=== PATIENT | male | born 1950 | race Caucasian/White ===

== ENCOUNTER 2021-07-02 11:00 | Outpatient (CLI) | payer MEDICARE, SELFPAY ==
[2021-07-02 11:22] LABS: Basophils Absolute Auto 0.1 K/mm3 (0.0-0.1); Basophils Percent Auto 0.9 % (0.2-1.2); Eosinophils Absolute Auto 0.3 K/mm3 (0-0.3); Eosinophils Percent Auto 4.4 % (0-4.4); Hematocrit 46.2 % (42.0-52.0); Hemoglobin 15.7 g/dL (14.0-18.0); Immature Granulocyte Absolute 0.02 K/mm3 (0.00-0.031); Immature Granulocyte Percent A 0.3 % (0-0.5); Lymphocytes Absolute Auto 1.28 K/mm3 (0.9-3.2); Lymphocytes Percent Auto 20.3 % (18.3-44.2); Mean Corpuscular Hemoglobin 34.3 pg (26-34); Mean Corpuscular Volume 100.9 fl (80-100); Mean Platelet Volume 10.7 fl (7.4-10.4); Monocytes Absolute Auto 0.6 K/mm3 (0.1-0.6); Neutrophils Absolute Auto 4.1 K/mm3 (1.3-6.7); Neutrophils Percent Auto 65.1 % (45.5-73.1); Platelet Count Result 234 k/mm3 (150-375); Red Blood Count 4.58 M/mm3 (4.6-6.20); Red Cell Distribution Width 11.9 % (11.5-14.5); White Blood Count 6.3 K/mm3 (4.5-10.0)
[2021-07-02 12:06] LABS: Alanine Aminotransferase 34 U/L (4-50); Albumin Level 4.4 g/dL (3.5-5.1); Alkaline Phosphatase 51 U/L (38-126); Anion Gap 6 mmol/L (8-16); Aspartate Amino Transferase 27 U/L (17-59); Blood Urea Nitrogen 16 mg/dL (9-20); Calcium 9.4 mg/dL (8.4-10.2); Carbon Dioxide 31 mmol/L (22-30); Chloride 100 mmol/L (98-107); Estimated Glomerular Filt Rate > 60; Glucose 105 mg/dL (65-110); Potassium 4.7 mmol/L (3.4-5.0); Sodium 137 mmol/L (137-145)
== END 2021-07-02 11:01 | disposition home or self-care (01) ==
PROVIDERS: PCP Internal Medicine; Visit Provider Internal Medicine Hematology & Oncology
DX: D72.9 Disorder of white blood cells, unspecified (principal)
CPT/HCPCS: 36415; 80053; 85025

== ENCOUNTER 2025-01-14 09:12 | Outpatient (CLI) | payer MEDICARE, SELFPAY ==
--- NOTE | ~2025-01-14 | DEXA_ITS ---
Bone Density Report Name: ARIAS HOOK Age: 74 Sex: Male Ethnicity: White Date of : 1950 Indication: osteopenia; monitoring treatment; Referring Provider: GIOVANNIUSMAN Study: Bone densitometry was performed. Exam Date: January 14, 2025 Accession number: [id number] Bone Density: Region BMD T-score Z-score Classification AP Spine(L1-L4) 0.947 -1.3 -0.3 Osteopenia Femoral Neck (Left) 0.636 -2.2 -0.9 Osteopenia Total Hip (Left) 0.908 -0.8 -0.1 Normal Femoral Neck (Right) 0.716 -1.6 -0.3 Osteopenia Total Hip (Right) 0.918 -0.8 0.0 Normal Total Hip Mean 0.913 -0.8 -0.1 Normal World Health Organization criteria for BMD impression classify patients as: Normal (T-score at or above -1.0), Osteopenia (T-score between -1.0 and -2.5), or Osteoporosis (T-score at or below -2.5). 10-year Fracture Risk: FRAX not reported because: Treated for osteoporosis Previous Exams: Region Exam Age BMD T-score BMD Change BMD Change Date g/cm2 vs Baseline vs Previous AP Spine (L1-L4) 01/14/2025 74 0.947 -1.3 0.010 (1.0%) 0.010 (1.0%) 12/03/2016 66 0.937 -1.4 Total Hip(Left) 01/14/2025 74 0.908 -0.8 0.089 (10.9%)* 0.089 (10.9%)* 12/03/2016 66 0.819 -1.4 Total Hip(Right) 01/14/2025 74 0.918 -0.8 0.059 (6.9%)* 0.059 (6.9%)* 12/03/2016 66 0.859 -1.2 *Denotes significance at 95% confidence level, LSC for AP Spine = 0.022 g/cm2, LSC for Total Hip = 0.027 g/cm2 Clinical Information Provided by Patient: Is being treated for osteoporosis Has used the following medications: Fosamax (i.e. alendronate), Vitamin D, Calcium Patient maximum height was 69.0 No regular weight bearing exercise Drinks caffeinated beverages Impression: The patient has low bone mass, based on the Left Femoral Neck T-score. No significant bone loss was observed. Discussion: PATIENT UNDER TREATMENT WITH NO SIGNIFICANT BMD LOSS SINCE LAST EXAM. In an untreated patient, BMD typically declines with age. A lack of decline or gain is usually a sign that treatment is efficacious and fracture risk is reduced. It is important to ask patients whether they are taking their medications and to encourage continued and appropriate compliance with their osteoporosis therapies to reduce fracture risk. It is also important to review their risk factors and encourage appropriate calcium and vitamin D intakes, exercise, fall prevention and other lifestyle measures. Follow-Up: Consider repeating this study in 2 years to reassess this patient's status, or sooner if there is some new clinical indication. Reported by: AME on 01/14/2025 9:58:00 AM. Reviewed, dictated and finalized at location A.
--- OUTSIDE RECORDS SUMMARY | 2025-01-14 09:21 | XMS_ITS | Continuity of Care Document ---
Author Organization [facility] Address [id number] [place] [address] [address] [place] [address] Phone Care Team Providers Care Cost Accounting Manager Name Role Phone Bony Blevins Unavailable Unavailable Advance Directives Directive Yes / No Effective Date File Name No Information Encounters Encounter Description Practice Location Reason(s) For Visit Diagnoses Date Provider Providers Copied on Encounter [facility], [address], [place], [place], [id number], [place] tel:[phone] [facility] No Information 1-200 [address] Felicity Lovett. [address] , [address], [place], [address], [place]. tel:[phone] Family History Family Member Type Diagnosis Age At Onset No Information Payers Payer name Insurance type Covered constitution party ID Authoriza tion(s) No Information Social History Type Description Quantity Date Captured Comments Sex Male Smoking Status No Information Chief Complaint And Reason For Visit No Information Reason For Referral Reason For Referral No Information History Of Present Illness Encounter Date Complaint History Of Prese nt Illness No Information Functional Status Date Functional Assessmen t No Information Instructions Date Instruction Additional Infor mation No Information Assessments Type Assessment Date No Information Patient Care Teams Name Effective Dates (start - stop) Status Members No Information
--- OUTSIDE RECORDS SUMMARY | 2025-01-14 09:21 | XMS_ITS | Continuity of Care Document ---
Author Organization [facility] Address [address] [place] [address] Phone Care Team Providers Care Model And Dye Person Name Role Phone Temo Reyes MD Unavailable Unavailable Allergies, Adverse Reactions, Alerts Substance Reaction Status Criticality TAZOBACTAM SODIUM Active No Informa tion PIPERACILLIN SODIUM Active No Infor mation Medications Medication Instructions Dosage Effective Dates (start - stop) Status Comments alendronate 70 mg tablet take 1 tablet by oral route every week in the morning, at least 30 min before first food, beverage, or medication of day 70 MG - Active calcium + d3 (unknown strength) Not Available - Active MULTIVITAMIN 50 PLUS (unknown strength) take 1 tablet by oral route every day Not Available - Active Procedures Procedure Date EYE EXAM, NEW PATIENT EXC FACE-MM B9+JUDY 0.5 < CM Advance Directives Directive Yes / No Effective Date File Name No Information Encounters Encounter Description Practice Location Reason(s) For Visit Diagnoses Date Provider Providers Copied on Encounter [facility], [id number] [place] [address] [address], [place], [place], [id number], [place] tel:[phone] OPH CONSULT JOSE LAWRENCE bump on BLL (chief complaint) Sebaceous cysts of eyelids of both eyesCysts of left eye, unspecified eyelidBrow ptosis, bilateralDerma tochalasis of upper and lower eyelids of both eyesDermatocha lasis of right lower eyelidDermatoc halasis of left upper eyelidDermatoc halasis of left lower eyelid 4 Eric Plascencia. [address], [address], [place], [address], . tel:[phone] Referring Provider: Allison Ivan OD, [address], [place], [address] . tel:[phone] Family History Family Member Type Diagnosis Age At Onset Problem No family history of Macular degeneration Problem No family history of [place] a Payers Payer name Insurance type Covered alliance party ID Joe benjamin(s) [facility] Medicare Advantage Hmo CI [id number] Social History Type Description Quantity Date Captured Comments Alcohol Use Details Unknown Caffeine Use Details Unknown Tobacco Use Status Ex-cigarette smoker 024 Smoking Status Former smoker Smoking Tobacco Use Details Cigarette: Age Stopped: 24 Cigarette: No Details Available Sex Male Vital Signs Date / Time: Height Weight BMI Pulse Rate Blood Pressure Temperature Respiratory Rate Body Surface Area Head Circumference Head Circ. Percentile Wt./Arben. Percentile BMI percentile Pulse Ox Inhaled Ox 9:34 AM 68.00 in 86.183 kg (190.00 lbs) 28.8 9 kg/m eter (2) Chief Complaint And Reason For Visit From encounter dated '11/08/2023 08:40'. bump on BLL (chief complaint). Description: The 73 year old male presents for evaluation of bump onBLL, patient states he had an eye dr larson about a month ago and the dr noticed bumps on BLL that were not there during his last visit. He said he noticed them a few months ago but they haven't bothered him at all so he thought nothing of it. Not currently using ATs or warm compresses, denies pain/discomfort Reason For Referral Reason For Referral No Information Plan Of Treatment Date Type Action Status Goal Tobacco cessation counseling completed History Of Present Illness Encounter Date Complaint History Of Prese nt Illness bump on BLL The 73 year old male presents for evaluation of bump on BLL, patient states he had an eye dr larson about a month ago and the dr noticed bumps on BLL that were not there during his last visit. He said he noticed them a few months ago but they haven't bothered him at all so he thought nothing of it. Not currently using ATs or warm compresses, denies pain/discomfort Functional Status Date Functional Assessmen t No Information Instructions Date Instruction Additional Infor mation Impression/Plan Related to Sebac eous cysts of eyelids of both eyes Impression/Plan Related to Cysts of left eye, unspecified eyelid Impression/Plan Related to Brow ptosis, bilateral Impression/Plan Related to [place] tochalasis of upper and lower eyelids of both eyes Impression/Plan Related to [place] tochalasis of right lower eyelid Impression/Plan Related to [place] tochalasis of left upper eyelid Impression/Plan Related to [place] tochalasis of left lower eyelid Assessments Type Assessment Date assessment Sebaceous cysts of eyelids of rashi th eyes assessment Cysts of left eye, unspecified e yelid assessment Brow ptosis, bilateral assessment Dermatochalasis of upper and low er eyelids of both eyes assessment Dermatochalasis of right lower e yelid assessment Dermatochalasis of left upper ey elid assessment Dermatochalasis of left lower ey elid impression Sebaceous cysts of eyelids of rashi th eyes: H02.823 impression Cysts of left eye, unspecified e yelid: H02.826 impression Brow ptosis, bilateral: H57.813 impression Dermatochalasis of u pper and lower eyelids of both eyes: H02.831 impression Dermatochalasis of right lower e yelid: H02.832 impression Dermatochalasis of left upper ey elid: H02.834 impression Dermatochalasis of left lower ey elid: H02.835 Patient Care Teams Name Effective Dates (start - stop) Status Members No Information
--- OUTSIDE RECORDS SUMMARY | 2025-01-14 09:21 | XMS_ITS | Clinical Summary ---
Author Organization [facility] [employer] Address [address] [place] [address] Care Team Providers Care Monotype Caster Name Role Phone Unavailable Primary Care Provider Unavailabl e Source Comments [facility],non-owned Affiliates and Associated Physician Practices is amultiple site organization consisting of ambulatory clinics and hospital sitesin [place], [place], [place] and [place]. This disclosure is being madepursuant to the Care Everywhere program and may not contain all information available regarding this patient. Last updated 18.[facility] [employer] Immunizations Immunization Administration Dates Next Due INFLUENZA VACCINE, HIGH-DOSE , QUADR. (FLUZONE HIGH-DOSE QUADRIVALENT; 65Y+), 0.7 ML (HD-IIV4) 05/03/2017 Social History Tobacco Use Types Packs/Day Years Used Date Smoking Tobacco: Never Assessed Sex and Gender Information Value Date Recorded Sex Assigned at Not on file Legal Sex Male 10:47 AM CDT Gender Identity Not on file Sexual Orientation Not on file Plan of Treatment Health Maintenance Due Date Last Done Comments COLOGUARD (AGES 45-75) - COL ON CA SCREENING 1950 COLON MONITORING 1950 COLONOSCOPY - COLON CA SCREENING 1950 CT COLONOGRAPHY - COLON CA SCREENING 1950 Colorectal Cancer Screening 1950 FIT - COLON CA SCREENING 1950 FLEX SIG - COLON CA SCREENING 1950 LIPID TESTING 1950 HEPATITIS C SCREENING 05/31/1969 DTAP/TDAP/TD VACCINES (1 - Tdap) 1970 PNEUMOCOCCAL VACCINE 50+ (1 of 1 - PCV) 2001 ZOSTER VACCINE (1 of 2) 2001 COVID-19 VACCINE (1 - 2023-2 5 season) 2024 DEPRESSION SCREENING 07/04/2024 INFLUENZA VACCINE (#1) 2025 05/03/2017 Respiratory Syncytial Virus (RSV) Vaccine Pt: or over 60 yrs (1 - 1-dose 75+ series) 2026 HEPATITIS B VACCINE Aged Out No longe r eligible based on patient's age to complete this topic HIB VACCINE Aged Out No longer eligi ble based on patient's age to complete this topic HPV VACCINE Aged Out No longer eligi ble based on patient's age to complete this topic MENINGOCOCCAL (Group B) VACC INE SHARED DECISION-MAKING Aged Out No longer eligibl e based on patient's age to complete this topic MENINGOCOCCAL GROUPS A/C/Y/W VACCINE Aged Out No longer eligible b ased on patient's age to complete this topic Insurance MEDICARE [facility] [place] [id number]
--- OUTSIDE RECORDS SUMMARY | 2025-01-14 09:21 | XMS_ITS | Clinical Summary ---
Author Organization [facility] Address [address] [facility] [place] [address] Care Team Providers Care Preschool Lead Teacher Name Role Phone Eddie Haas MD Primary Care Provider Allergies Active Allergy Reactions Criticality Noted Date Comments Piperacillin-Tazobactam Rash Low 08/14/2019 Medications alendronate (FOSAMAX) 70 mg tablet Take by mouth. 08/14/2019 Active Active Problems Problem Noted Date Diagnosed Date Erythrocytosis 07/06/2021 Hyperproteinemia 07/06/2021 Tinnitus 06/08/2021 Arthritis 06/08/2021 Family History Medical History Relation Name Comments Diabetes Brother 1 Relation Name Status Comments Brother 1 Alive Brother 2 Father Mother Social History Tobacco Use Types Packs/Day Years Used Date Smoking Tobacco: Never Sex and Gender Information Value Date Recorded Sex Assigned at Not on file Legal Sex Male 11:16 AM CDT Gender Identity Not on file Sexual Orientation Not on file Last Filed Vital Signs Vital Sign Reading Time Taken Comments Blood Pressure 132/74 06/08/2021 10:54 AM MANAGEMENT PROFESSIONAL Pulse 55 06/08/2021 10:54 AM MANAGEMENT PROFESSIONAL Temperature 37 C (98.6 F) 06/08/2021 10:54 AM MANAGEMENT PROFESSIONAL Respiratory Rate - - Oxygen Saturation 96% 06/08/2021 10:54 AM MANAGEMENT PROFESSIONAL Inhaled Oxygen Concentration - - Weight 86.2 kg (190 lb) 06/08/2021 10:54 AM MANAGEMENT PROFESSIONAL Height 172.7 cm (5' 8) 06/08/2021 10:54 AM MANAGEMENT PROFESSIONAL Body Mass Index 28.89 06/08/2021 10:54 AM MANAGEMENT PROFESSIONAL Plan of Treatment Health Maintenance Due Date Last Done Comments COLORECTAL SCREENING 1996 Colorectal Cancer Screening 1996 FIT-DNA Q 3 years 1996 FIT/FOBT Q 1 year 1996 Flex Sig/CT Colonography Q 5 years 1996 ZOSTER VACCINE (1 of 2) 2001 INFLUENZA VACCINE (#1) 2025 , 03/23/2019, 04/03/2018, Additional history exists RSV VACCINE (60+ or ) (1 - 1-dose 75+ series) 2026 DTAP/TDAP/TD VACCINES (2 - T d or Tdap) 10/26/2026 10/26/2016 PNEUMOCOCCAL VACCINE 50+ YEARS Completed 12/15/2017 , 12/14/2016 Insurance Care Teams Preschool Lead Teacher Relationship Specialty Start Date End Date Eddie Haas MD PCP - General Internal Medicine 06/08/21
== END 2025-01-14 09:13 | disposition home or self-care (01) ==
LOC: ANHIMG 09:18
PROVIDERS: PCP Internal Medicine; Visit Provider Internal Medicine
DX: M81.0 Age-related osteoporosis without current pathological fracture (principal); M85.89 Other specified disorders of bone density and structure, multiple sites
CPT/HCPCS: 77080